=== PATIENT | female | born 1980 | race Caucasian/White ===

== ENCOUNTER 2016-12-18 14:31 | Outpatient (CLI) | payer BC | END 2016-12-18 14:32 | disposition home or self-care (01) | LOC: MADLAB 14:31 | PROVIDERS: ATTEND Family Medicine | DX: K92.1 Melena (principal) ==

== ENCOUNTER 2016-12-30 16:54 | Outpatient (CLI) | payer BC | END 2016-12-30 16:55 | disposition home or self-care (01) | LOC: MADLAB 16:54 | PROVIDERS: ATTEND Family Medicine | DX: K92.1 Melena (principal) | CPT/HCPCS: 82274 ==

== ENCOUNTER 2017-04-18 18:18 | Emergency (ER) | payer BC | END 2017-04-18 19:30 | disposition home or self-care (01) | LOC: MADERS 18:18 | DX: K08.89 Other specified disorders of teeth and supporting structures (principal); E03.9 Hypothyroidism, unspecified; F17.200 Nicotine dependence, unspecified, uncomplicated; Z79.899 Other long term (current) drug therapy | CPT/HCPCS: 99282 ==

== ENCOUNTER 2019-06-15 10:32 | Emergency (ER) | payer OTHER, SELFPAY | END 2019-06-15 11:29 | disposition home or self-care (01) | LOC: MADERS 10:32 | DX: J11.1 Influenza due to unidentified influenza virus with other respiratory manifestations (principal); J45.909 Unspecified asthma, uncomplicated; E03.9 Hypothyroidism, unspecified; F17.200 Nicotine dependence, unspecified, uncomplicated; Z79.899 Other long term (current) drug therapy | CPT/HCPCS: 99283 ==